=== PATIENT | female | born 1965 | race Caucasian/White ===

== ENCOUNTER 2018-11-30 23:05 | Emergency (ER) | payer SELFPAY ==
--- NOTE | 2018-11-30 23:54 | ED ---
Complex/Multi-Sys Presentation - HPI Summary HPI Summary: This patient is a 53 year old F presenting to ED with a chief complaint of constant diffuse pain since years ago. Recently, the pain has gotten too much. The pain is worse in the bilateral lower extremities and right hand pain. The pain is worse at night. She also reports abdominal pressure. She is originally from [place]. Patient has been self-medicating with amoxicillin. She was diagnosed with UTIs previously, but she reports her urinary symptoms are no longer problems. The patient rates the pain 9/10 in severity. Symptoms aggravated by nothing. Symptoms alleviated by antibiotics. Patient reports diarrhea and intermittent leg swelling. Patient denies LANDEROS, sore throat, runny nose, CP, SOB, skin rashes. Patient reports her appetite is too good. - History Of Current Complaint Chief Complaint: EDGeneral Time Seen by Provider: 11/30/18 23:44 Hx Obtained From: Patient Onset/Duration: Gradual Onset, Lasting Weeks - Lasting years, Still Present, Worse Since Timing: Constant Severity Currently: Severe Severity Initially: Severe Location: Pain At: - Bilateral LE, right hand Aggravating Factor(s): Nothing Alleviating Factor(s): Amoxicillin Associated Signs And Symptoms: Positive: Diarrhea, Other - Intermittent LE swelling, diffuse aches, negative: LANDEROS, sore throat, runny nose, CP, SOB, skin rashes - Allergies/Home Medications Allergies/Adverse Reactions: Allergies Allergy/AdvReac Type Severity Reaction Status Date / Time No Known Allergies Allergy Verified 11/30/18 23:08 PMH/Surg Hx/FS Hx/Imm Hx Endocrine/Hematology History: Denies: Hx Diabetes Cardiovascular History: Denies: Hx Hypercholesterolemia, Hx Hypertension - Surgical History Surgery Procedure, Year, and Place: Infectious Disease History: No Infectious Disease History: Denies: Traveled Outside the [place] in Last 30 Days - Family History Known Family History: Positive: Non-Contributory - Social History Hx Tobacco Use: Yes Smoking Status (MU): Current Every Day Smoker - Half pack/day Type: Cigarettes Review of Systems Negative: Sore Throat, Nasal Discharge Negative: Chest Pain Negative: Shortness Of Breath Positive: Abdominal Pain - Pressure, Diarrhea Negative: dysuria Musculoskeletal: Other - Diffuse pain, worst in bilateral LE and right hand Negative: Rash Negative: Headache All Other Systems Reviewed And Are Negative: Yes Physical Exam - Summary Physical Exam Summary: Appearance: Well-appearing, Well-nourished, lying in bed comfortably Skin: Warm, dry, no obvious rash Eyes: sclera anicteric, no conjunctival pallor ENT: mucous membranes moist, pharynx appears normal Neck: Supple, nontender Respiratory: Clear to auscultation, no signs of respiratory distress Cardiovascular: Normal S1, S2. No murmurs. Normal distal pulses in tibial and radial bilaterally. Abdomen: LLQ tenderness with a sense that there may be a mass there Musculoskeletal: Hands: mild swelling at the MCP joints and PIP joints, but no active arthritis. Lower extremities: no effusions in the knees or ankles, no signs of inflammation. Neurological: A&Ox3, awake and alert, mentation is normal, speech is fluent and appropriate Psychiatric: affect is normal, does not appear anxious or depressed Triage Information Reviewed: Yes Vital Signs On Initial Exam: Initial Vitals Temp Pulse Resp BP Pulse Ox 98.4 F 94 18 129/87 96 11/30/18 23:08 11/30/18 23:08 11/30/18 23:08 11/30/18 23:08 11/30/18 23:08 Vital Signs Reviewed: Yes Diagnostics - Vital Signs Vital Signs Temp Pulse Resp BP Pulse Ox 11/30/18 23:08 98.4 F 94 18 129/87 96 - Laboratory Result Diagrams: 12/01/18 00:12 12/01/18 00:12 Lab Statement: Any lab studies that have been ordered have been reviewed, and results considered in the medical decision making process. - CT A/P CT Interpretation Completed By: Radiologist Summary of CT Findings: 1. There is small hiatal hernia. 2. No other acute CT pathology. Dr. Rushing has reviewed this radiology report. Re-Evaluation - Re-Evaluation First Eval Re-Evaluation Time: 03:09 Comment: Discussed results with patient. Patient will be discharged w dx of chronic abdominal pain and chronic myalgias. Patient understands and agrees with this plan. Complex Multi-Symp Course/Dx Course Of Treatment: This patient is a 53 year old F presenting to ED with a chief complaint of constant diffuse pain since years ago. In the ED course, patient received Roxycodone. Blood work revealed BUN/creatinine ratio 23.1, glucose 113, magnesium 1.8, AST 46. CT A/P revealed 1. There is small hiatal hernia. 2. No other acute CT pathology. Discussed results with patient. Patient will be discharged w dx of chronic abdominal pain and chronic myalgias. Patient understands and agrees with this plan. - Diagnoses Provider Diagnoses: Chronic abdominal pain, Myalgia Discharge - Sign-Out/Discharge Documenting (check all that apply): Patient Departure - Discharge Patient Received Moderate/Deep Sedation with Procedure: No - Discharge Plan Condition: Stable Disposition: HOME Prescriptions: Naproxen TAB* [Naprosyn 375 mg TAB*] 375 mg PO BID #40 tab Patient Education Materials: Musculoskeletal Pain (ED) Referrals: No Primary Care Phys,NOPCP [Primary Care Provider] - Additional Instructions: The fairly extensive testing we did tonight did not give us a cause for your symptoms. Tests looking for inflammation in your body were normal, as was the CT scan of the abdomen. For now I have prescribed prescription strength naprosyn to see if we can help with the pain, but followup with a primary care provider will be important. - Billing Disposition and Condition Condition: STABLE Disposition: Home - Attestation Statements Document Initiated by Mariah: Yes Documenting Scribe: Yordy Burns Provider For Whom Mariah is Documenting (Include Credential): Alirio Rushing MD Scribe Attestation: I, Yordy Burns, scribed for Alirio Rushing MD on 12/01/18 at 0621. Scribe Documentation Reviewed: Yes Provider Attestation: The documentation as recorded by the Yordy ma accurately reflects the service I personally performed and the decisions made by me, Alirio Rushing MD Status of Scribe Document: Viewed
[2018-12-01 00:18] LABS: ABS Eosinophils 0.1 10^3/ul (0-0.6); ABS Lymphocytes 1.8 10^3/ul (1.0-4.8); ABS Monocytes 0.7 10^3/ul (0-0.8); ABS Neutrophils 7.3 10^3/ul (1.5-7.7); Eosinophil % 0.6 %; Hematocrit 39 % (35-47); Hemoglobin 13.2 g/dL (12.0-16.0); Lymphocyte % 18.5 %; Mean Corpuscular HGB Conc 34 g/dL (31-36); Mean Corpuscular Hemoglobin 31 pg (27-31); Mean Corpuscular Volume 90 fL (80-97); Mean Platelet Volume 8.3 fL (7.4-10.4); Platelet Count 337 10^3/uL (150-450); Red Blood Count 4.26 10^6 /uL (3.70-4.87); Red Cell Distribution Width 13 % (10-15); White Blood Count 9.9 10^3/uL (3.5-10.8)
[2018-12-01] MEDS ORDERED: oxyCODONE TAB* 5 MG TAB PO ONE (00:20)
[2018-12-01 00:36] LABS: ALT 39 U/L (7-52); AST 46 U/L (13-39); Albumin 4.5 g/dL (3.2-5.2); Albumin/Globulin Ratio 1.7 (1-3); Alkaline Phosphatase 49 U/L (34-104); Anion Gap 10 mmol/L (2-11); BUN/Creatinine Ratio 23.1 (8-20); Blood Urea Nitrogen 18 mg/dL (6-24); C Reactive Protein 4.16 mg/L (<8.01); CO2 Carbon Dioxide 24 mmol/L (22-32); Calcium 9.4 mg/dL (8.6-10.3); Chloride 104 mmol/L (101-111); EGFR African American 94.2 (>60); EGFR Non-African American 77.9 (>60); Globulin 2.7 g/dL (2-4); Glucose 113 mg/dL (70-100); Magnesium 1.8 mg/dL (1.9-2.7); Potassium 3.9 mmol/L (3.5-5.0); Sodium 138 mmol/L (135-145); Total Protein 7.2 g/dL (6.4-8.9)
[2018-12-01 00:58] LABS: Rheumatoid Factor < 10 IU/mL (<15)
[2018-12-01] MEDS ORDERED: Iohexol 300* (CONTRAST) 10 ML SDV IV ONE (01:07)
[2018-12-01 01:33] LABS: Erythrocyte Sed Rate 5 mm/Hr (0-29)
[2018-12-01 03:37] LABS: Urine Appearance Clear; Urine Bacteria Absent (Absent); Urine Bilirubin Negative (Negative); Urine Blood 1+ (Negative); Urine Color Yellow; Urine Glucose Negative (Negative); Urine Ketones Negative (Negative); Urine Nitrite Negative (Negative); Urine Protein Negative (Negative); Urine Red Blood Cell 1+(3-5/hpf) (Absent); Urine Specific Gravity > 1.060 (1.010-1.030); Urine Squamous Epithelial Cell Present (Absent); Urine Urobilinogen Negative (Negative); Urine White Blood Cell Absent (Absent)
[2018-12-01 04:06] VITALS: BP 129/71
== END 2018-12-01 04:05 | disposition home or self-care (01) ==
LOC: ED 23:05
DX: R10.9 Unspecified abdominal pain (principal); G89.29 Other chronic pain; M79.10 Myalgia, unspecified site; F17.210 Nicotine dependence, cigarettes, uncomplicated; K44.9 Diaphragmatic hernia without obstruction or gangrene
CPT/HCPCS: 36415; 74177; 80053; 81003; 81015; 83690; 83735; 85025; 85652; 86038; 86140; 86431; 99283; A9270-GY; Q9967